=== PATIENT | female | born 1955 | race Caucasian/White ===

== ENCOUNTER → 2019-11-28 | Outpatient (CLI) | payer OTHER | LOC: NUC 07:04 | DX: I48.91 Unspecified atrial fibrillation (principal); E78.5 Hyperlipidemia, unspecified; Z79.899 Other long term (current) drug therapy ==

== ENCOUNTER → 2019-11-30 | Outpatient (CLI) | payer OTHER ==
[~2019-11-30] MED LIST: DILTIAZEM ER120 M1 PO; LEVO-T25 MCG PO; LIPITOR 40 MG T40 M1 PO; OSTEO BI-FLEX1 EAC1 PO; PACERONE200 MG PO; PRADAXA150 MG PO; UNICOMPLEX M TA1 TA1 PO; ZETIA10 MG PO
== END | disposition home or self-care (01) ==
LOC: SJCVC 11:05
DX: I48.91 Unspecified atrial fibrillation (principal); E78.5 Hyperlipidemia, unspecified; Z79.899 Other long term (current) drug therapy; Z90.710 Acquired absence of both cervix and uterus

== ENCOUNTER → 2019-11-30 | Outpatient (CLI) | payer OTHER ==
--- NOTE | 2019-11-30 11:32 | 2DMMODE ---
[facility] [address] [place] [address] 2 D/M-MODE ECHOCARDIOGRAM Name: PALOMOADIN JACLYN Room #: REG [facility]#: [id number] Admission: 11/30/19 Attend Phys: Blaise Anguiano Discharge: Date of : 51 Report #: [id number] THIS REPORT FOR: //name// APPROVED REPORT Study performed: 11/30/2019 10:14:54 EXAM: Comprehensive 2D, Doppler, and color-flow Echocardiogram Patient Location: Out-Patient Status: routine BSA: 2.04 HR: 92 bpm BP: 110/82 mmHg Rhythm: Atrial Fibrillation Other Information Study Quality: Good Indications Atrial Fibrillation Hx: HLP 2D Dimensions RVDd: 39.91 mm IVSd: 11.95 (7-11mm) LVOT Diam: 22.23 (18-24mm) LVDd: 39.11 mm PWd: 10.52 (7-11mm) Ascending Ao: 30.70 (22-36mm) LVDs: 29.40 (25-40mm) Aortic Root: 31.99 mm Volumes Left Atrial Volume (Systole) Single Plane 4CH: 73.05 mL Single Plane 2CH: 56.45 mL LA ESV Index: 35.00 mL/m2 Aortic Valve AoV Peak Bradley.: 1.07 m/s AO Peak Gr.: 4.59 mmHg LVOT Max P.63 mmHg LVOT Max V: 0.81 m/s KAVON Vmax: 2.93 cm2 Mitral Valve MV Decel. Time: 159.38 ms MV E Max Bradley.: 0.89 m/s [facility] [address] [place] [address] 2 D/M-MODE ECHOCARDIOGRAM Name: ADIN CULVER Room #: REG [facility]#: [id number] Admission: 11/30/19 Attend Phys: Blaise Anguiano Discharge: Date of : 51 Report #: [id number] Pulmonary Valve PV Peak Bradley.: 0.70 m/s PV Peak Gr.: 1.99 mmHg Tricuspid Valve TR Peak Bradley.: 2.29 m/s RAP Estimate: 5.00 mmHg TR Peak Gr.: 21.11 mmHg PA Pressure: 26.00 mmHg Left Ventricle The left ventricle is normal size. There is normal LV segmental wall motion. Mild basal septal hypertrophy is present. Left ventricular systolic function is normal. LVEF is 55-60%. This study is not technically sufficient to allow evaluation of the LV diastolic function due to atrial fibrillation. Right Ventricle The right ventricle is normal size. The right ventricular systolic function is normal. Atria Mild biatrial enlargement. Aortic Valve The aortic valve is normal in structure. Trace to mild aortic regurgitation. There is no aortic valvular stenosis. Mitral Valve The mitral valve is normal in structure. Mild to moderate mitral regurgitation. Tricuspid Valve The tricuspid valve is normal in structure. Mild tricuspid regurgitation. Estimated PAP is 25-30mmHg. Pulmonic Valve The pulmonary valve is normal in structure. Trace pulmonic regurgitation. Great Vessels The aortic root is normal in size. The ascending aorta is normal in size. IVC is normal in size and collapses >50% with inspiration. Pericardium There is no pericardial effusion. [facility] [place] [address] 2 D/M-MODE ECHOCARDIOGRAM Name: ADIN CULVER JACLYN Room #: REG [facility]#: [id number] Admission: 11/30/19 Attend Phys: Blaise Anguiano Discharge: Date of : 51 Report #: [id number] <Conclusion> The left ventricle is normal size. LVEF is 55-60%. The right ventricle is normal size. Mild biatrial enlargement. The aortic valve is normal in structure. Trace to mild aortic regurgitation. The mitral valve is normal in structure. Mild to moderate mitral regurgitation. The tricuspid valve is normal in structure. Mild tricuspid regurgitation. Estimated PAP is 25-30mmHg. The pulmonary valve is normal in structure. Trace pulmonic regurgitation. There is no pericardial effusion. <ELECTRONICALLY SIGNED> By: Blaise Schultz MD 11/30/19 1131 1131 1131 Blaise Schultz MD /INF
== END ==
LOC: CV
DX: I08.3 Combined rheumatic disorders of mitral, aortic and tricuspid valves (principal); I48.91 Unspecified atrial fibrillation

== ENCOUNTER 2019-12-26 12:15 | Inpatient (IN) | payer OTHER ==
[~2019-12-26] VITALS: Ht 175.3 cm; Wt 87.1 kg
[2019-12-26 14:00] VITALS: BP 126/86
[2019-12-26 14:30] VITALS: BP 102/72
[2019-12-26] MEDS ORDERED: ZETIA10 MG PO (15:06)
[2019-12-26] MEDS ORDERED: DILTIAZEM ER120 M1 PO (15:06)
[2019-12-26] MEDS ORDERED: LIPITOR 40 MG T40 M1 PO (15:06)
[2019-12-26] MEDS ORDERED: UNICOMPLEX M TA1 TA1 PO (15:07)
[2019-12-26] MEDS ORDERED: PRADAXA150 MG PO (15:07)
[2019-12-26] MEDS ORDERED: LEVO-T25 MCG PO (15:07)
[2019-12-26] MEDS ORDERED: OSTEO BI-FLEX1 EAC1 PO (15:08)
[2019-12-26 16:02] LABS: CREATININE 0.7 mg/dL (0.6-1.0); MAGNESIUM 1.6 mg/dL (1.8-2.4); POTASSIUM 3.7 mmol/L (3.5-5.1)
--- NOTE | 2019-12-26 17:55 | NUR ---
DIRECT ADMIT FOR DR RILEY FOR CARDIOVERSION IN THE MORNING. ALERT X4, ANNA SOB, ANNA CHEST PAIN, ALERT X4, VS WNL. NPO TONIGHT FOR PROCEDURE IN THE MORNING. HOME MEDS RECONCILED, ADMISSION ASSESMENT AND HISTORY COMPLETED. ORRIENTED TO ROOM. CALL LIGHT IN REACH
[2019-12-26 19:17] VITALS: BP 119/70
[2019-12-26 23:38] VITALS: BP 117/68
[2019-12-27 04:47] VITALS: BP 119/71
--- NOTE | 2019-12-27 05:19 | NUR ---
ASSESSMENT DOCUMENTED.PT BEEN RESTING IN NO ACUTE.VSS.A/OX4.CONT ON AMIODARONE DRIP PER PROTOCL,TOLERATING,REMAINS AFIB ON MONITOR.NPO AFTER MIDNOC.RA W/O RESP DISTRESS.UP AD MIGUELITO TO BR.PT DENIES PAIN OR ANY DISTRESS AT THIS TIME.POC IS TO GO FOR CARDIOVERSION THEN HOME LATER
[2019-12-27 07:09] VITALS: BP 117/76
[2019-12-27] MEDS ORDERED: PACERONE200 MG PO (12:44)
[2019-12-27 16:00] VITALS: BP 117/76
--- NOTE | 2019-12-27 16:33 | NUR ---
ASSUMMED PT CARE AT APPROXIMATELY 0700. PT A&O X4. ASSESSMENT CHARTED. FALL PRECAUTIONS IN PLACE. PT DENIES HAVING CHEST PAIN. PT DENIES HAVING SOB. PT DENIES HAVING ACUTE PAIN. PT HAD CARDIOVERSION TODAY. PT CARDIOVERTED OUT OF AFIB. PT DISCHARGING HOME C SELF CARE. PT RECIEVED DISCHARGE EDUCATION. PT AND PT'S FAMILY STATED UNDERSTANDING AND DENIED HAVING FURTHER QUESTIONS. IV DC. TELE DC. PT RECEIVING MEDICAL TRANSPORT OFF UNIT. PT COMFORTABLE. PT DENIES HAVING FURTHER CONCERNS. VITAL SIGNS STABLE.
--- NOTE | 2019-12-28 12:13 | P ---
[facility] [place] [address] PROCEDURE REPORT Name: ADIN CULVER Room #: 200-I [facility] IN M.R.#: [id number] Admission: 12/26/19 Attend Phys: Blaise Schultz Discharge: 12/27/19 Date of : 51 Report #: [id number] THIS REPORT FOR: cc: Ngoc Mcelroy MD,Ngoc Schultz,Blaise Butts MD ~ CC: Blaise Mcelroy DATE OF SERVICE: 12/27/2019 INDICATION: This is a 64-year-old female patient with symptomatic paroxysmal atrial fibrillation. BRIEF DESCRIPTION OF PROCEDURE: After informed consent was obtained, the patient was brought to the cardiac catheterization laboratory prep and hold. She underwent sedation with 3 mg of Versed and 25 of Demerol IV. She was continuously monitored oximetrically and electrocardiographically. AP paddles have been placed in position and she underwent one synchronized biphasic 200 joules charge in sync mode. She converted to sinus bradycardia. Post-procedure, she was allowed to sleep and monitored until awake. COMPLICATIONS: None. RECOMMENDATIONS: Routine post-cardioversion protocol. <ELECTRONICALLY SIGNED> By: Blaise Schultz MD 12/28/19 1213 1323 [id number] Blaise Schultz MD /nt
--- NOTE | 2019-12-28 12:13 | D ---
[facility] [place] [address] DISCHARGE SUMMARY Name: ADIN CULVER Room #: 200-I [facility] IN M.R.#: [id number] Admission: 12/26/19 Attend Phys: Blaise Schultz Discharge: 12/27/19 Date of : 51 Report #: [id number] THIS REPORT FOR: cc: Ngoc Mcelroy MD,Ngoc Schultz,Blaise Butts MD ~ THIS REPORT FOR: //name// CC: Blaise Mcelroy DATE OF SERVICE: 12/27/2019 ADMITTING DIAGNOSIS: Symptomatic paroxysmal atrial fibrillation. DISCHARGE DIAGNOSIS: Symptomatic paroxysmal atrial fibrillation. PROCEDURES PERFORMED: 1. Electrical cardioversion. 2. Supervision of conscious sedation. DISCHARGE MEDICATIONS: 1. Home meds. 2. 200 mg of amiodarone p.o. b.i.d. x 1 week, then q.a.m. FOLLOWUP: Dr. Schultz in 3-4 weeks. BRIEF CLINICAL HISTORY: See history and physical in chart. HOSPITAL COURSE: The patient was admitted to the hospital, was initiated on IV amiodarone protocol. This failed to convert her overnight. She subsequently underwent electrical cardioversion with a synchronized 200 joule biphasic shock. This converted her to sinus bradycardia. There were no complications during the procedure. She subsequently was observed, allowed to ambulate and discharged to home in stable and improved condition with previously stated discharge instructions and medications. <ELECTRONICALLY SIGNED> By: Blaise Schultz MD 12/28/19 1213 1324 1335 Blaise Schultz MD /nt
== END 2019-12-27 18:17 | disposition home or self-care (01) | DRG 310 ==
LOC: 2N 12:15 → ENTRNSPT 12-27 16:31 → 2N 12-27 18:17
PROVIDERS: ADMIT Internal Medicine
PROC: 5A2204Z Restoration of Cardiac Rhythm, Single (ICD-10-PCS; principal; 2019-12-27)
DX: I48.0 Paroxysmal atrial fibrillation (principal); E78.5 Hyperlipidemia, unspecified; Z79.899 Other long term (current) drug therapy; Z79.82 Long term (current) use of aspirin; Z90.710 Acquired absence of both cervix and uterus
CPT/HCPCS: 10081

== ENCOUNTER → 2020-01-25 | Outpatient (CLI) | payer OTHER | LOC: SJCVC 10:36 | DX: I48.91 Unspecified atrial fibrillation (principal); E78.5 Hyperlipidemia, unspecified; Z79.899 Other long term (current) drug therapy ==

== ENCOUNTER → 2020-04-10 | Outpatient (CLI) | payer OTHER | LOC: SJCVC 09:38 | DX: R94.31 Abnormal electrocardiogram [ECG] [EKG] (principal); I21.29 ST elevation (STEMI) myocardial infarction involving other sites; I48.0 Paroxysmal atrial fibrillation ==

== ENCOUNTER → 2020-05-07 | Outpatient (CLI) | payer OTHER | LOC: LAB 08:00 | PROVIDERS: ATTEND Internal Medicine Cardiovascular Disease | DX: Z01.812 Encounter for preprocedural laboratory examination (principal); Z11.59 Encounter for screening for other viral diseases ==

== ENCOUNTER → 2020-05-07 | Outpatient (CLI) | payer OTHER ==
[2020-05-07 09:44] LABS: ABSOLUTE NEUTROPHILS 3.7 thou/uL (1.4-8.2); BASOPHILS 0.7 % (0.0-2.0); EOSINOPHILS 1.7 % (0.0-3.0); HEMATOCRIT 39.4 % (37.0-47.0); HEMOGLOBIN 13.1 gm/dL (12.0-15.0); LYMPHOCYTES 18.8 % (24.0-44.0); MCH 32.6 pg (26.0-34.0); MCHC 33.3 g/dL (28.0-37.0); MCV 97.8 fL (80.0-100.0); MONOCYTES 7.9 % (1.0-8.0); PLATELET COUNT 186 thou/uL (150-400); POLYS 70.9 % (36.0-66.0); RBC 4.03 mil/uL (4.20-5.00); RDW 14.9 % (10.5-14.5); WBC 5.2 thou/uL (4.0-11.0)
[2020-05-07 09:58] LABS: ALBUMIN 3.9 g/dL (3.4-5.0); CALCIUM 9.1 mg/dL (8.5-10.1); CREATININE 0.7 mg/dL (0.6-1.0); POTASSIUM 4.4 mmol/L (3.5-5.1); TOTAL BILIRUBIN 0.4 mg/dL (0.2-1.0); TOTAL PROTEIN 7.2 g/dL (6.4-8.2)
== END ==
LOC: CAT 09:18
PROVIDERS: ATTEND Internal Medicine Cardiovascular Disease
DX: I48.91 Unspecified atrial fibrillation (principal)

== ENCOUNTER → 2020-05-10 | Outpatient (CLI) | payer OTHER | END | disposition home or self-care (01) | LOC: CATH 06:38 | PROVIDERS: ATTEND Internal Medicine Cardiovascular Disease | DX: I48.91 Unspecified atrial fibrillation (principal); Z53.8 Procedure and treatment not carried out for other reasons; Z98.890 Other specified postprocedural states; Z79.899 Other long term (current) drug therapy; Z79.01 Long term (current) use of anticoagulants ==

== ENCOUNTER 2020-06-04 06:30 | Outpatient (CLI) | payer OTHER ==
[2020-06-04] VITALS (7 sets, daily range): BP systolic 106–151; BP diastolic 64–86
[~2020-06-04] VITALS: Ht 175.3 cm; Wt 81.6 kg
[2020-06-04 07:20] LABS: ABSOLUTE NEUTROPHILS 3.6 thou/uL (1.4-8.2); BASOPHILS 0.5 % (0.0-2.0); EOSINOPHILS 3.2 % (0.0-3.0); HEMATOCRIT 39.5 % (37.0-47.0); HEMOGLOBIN 13.4 gm/dL (12.0-15.0); LYMPHOCYTES 18.9 % (24.0-44.0); MCH 32.9 pg (26.0-34.0); MCHC 33.9 g/dL (28.0-37.0); MCV 97.2 fL (80.0-100.0); MONOCYTES 7.9 % (1.0-8.0); PLATELET COUNT 172 thou/uL (150-400); POLYS 69.5 % (36.0-66.0); RBC 4.06 mil/uL (4.20-5.00); RDW 14.5 % (10.5-14.5); WBC 5.2 thou/uL (4.0-11.0)
[2020-06-04 07:30] LABS: CALCIUM 9.1 mg/dL (8.5-10.1); CREATININE 0.9 mg/dL (0.6-1.0); POTASSIUM 3.9 mmol/L (3.5-5.1)
[2020-06-04 07:32] LABS: APTT 34.3 Seconds (24.5-32.8); PROTIME 10.7 Seconds (9.3-11.4)
[2020-06-04 07:35] LABS: TOTAL BILIRUBIN 0.3 mg/dL (0.2-1.0); TOTAL PROTEIN 7.8 g/dL (6.4-8.2)
--- NOTE | 2020-06-04 14:54 | NUR ---
[facility] HERE TO PULL ART LINE.
--- NOTE | 2020-06-04 15:43 | NUR ---
ZENG CATHETER REMOVED FOR APPROX 1200CC CLEAR YELLOW URINE. ASSISTED PT TO SIT UP AT BEDSIDE AND PERFORM OWN PERICARE. PT TOLERATED WELL. WAITING ON ROOM.
--- NOTE | 2020-06-04 18:56 | NUR ---
PT. ARRIVED ON FLOOR AROUND 1630; AOX4; ON BED REST SINCE 1130; PER DR. PRADO NOTES KEEP THE PT. ON BED REST UNTIL 1730; PT. NOTIFIED; ST. UNDERSTANDING; R. SIDE GROIN AREA INTACT; NO HEMATOMA; DRIED DRAINAGE; MARKED; EDUCATED ABOUT FALL PREVENTIONS; OFF OF BED REST AT 1730; ABLE TO STAND UP & WALK TO THE RESTHROOM; ABLE TO VOID; EDUCATED ABOUT HOLDING PRESSURE WHEN COUGHING; ST. UNDERSTANDING; SR ON THE MONITOR; MONITORING; ASSESSMENT CHARGED; FOLLOWING POC; WILL PASS ON REPORT;
[2020-06-04] MEDS ORDERED: AMIODARONE HCL400 MG PO (19:01)
[2020-06-05 00:10] VITALS: BP 122/79
[2020-06-05 02:49] VITALS: BP 119/68
--- NOTE | 2020-06-05 05:07 | NUR ---
HAD TROUBLE FALLING ASLEEP STATING SHE CAN HEAR THE CONFUSED ONE NEXT DOOR. STATES EVERY TIME SHE TURNS AND MOVES HER RIGHT GROIN IS SORE. IT FEELS BRUISED. REPOSTIONED AND ELEVATED KNEES WHICH GOT RID OF BACK PAIN. WORKING ON GOALS AND PLAN OF CARE FOR NOC. PROGRESSING SLOWLY TOWARDS DISCHARGE GOALS. CONTINUE TO ASSES.
[2020-06-05 07:50] VITALS: BP 116/76
[2020-06-05] MEDS ORDERED: PACERONE 200 M200 M1 PO (08:19)
[2020-06-05 08:40] VITALS: BP 116/76
--- NOTE | 2020-06-05 09:49 | NUR ---
ASSUMED CARE PT SHIFT CHANGE. ASSESSMENT CHARTED. MEDS GIVEN PER JAN.PT ALERT AND ORIENTED. DC ORDERS IN PER CARDIOLOGY. RT GROIN SITE DRY, INTACT. DRAINAGE NOTED. NO HEMATOMA. PT UP ADLIB. PT LEFT UNIT AT APPROX 0940 WITH ALL BELONGINGS.
--- NOTE | 2020-06-06 15:33 | P ---
[facility] [place] [address] PROCEDURE REPORT Name: ADIN CULVER Room #: DEP [facility]#: [id number] Admission: 06/04/20 Attend Phys: Cristian Allen MD Discharge: 06/05/20 Date of : 51 Report #: [id number] THIS REPORT FOR: cc: Ngoc Mcelroy MD,Ngoc Allen,Cristian Bustamante MD ~ CC: Eunice Mcelroy ATRIAL FIBRILLATION AND ATRIAL FLUTTER ABLATION PREOPERATIVE DIAGNOSIS: Atrial fibrillation. POSTOPERATIVE DIAGNOSES: 1. Atrial fibrillation. 2. Typical atrial flutter. HISTORY: The patient is a 64-year-old with history of paroxysmal AFib, who has failed to maintain sinus rhythm with antiarrhythmic drug therapy. She is here for AFib ablation. PROCEDURES PERFORMED: 1. Atrial fibrillation ablation, CPT code 59219. 2. 3D mapping, CPT code 49790. 3. Intracardiac echo, CPT code 14854. 4. Second pathway ablation for atrial flutter, CPT code 67441. ANESTHESIA: The patient underwent general anesthesia with no anesthesia related complications. DESCRIPTION OF PROCEDURE: The patient underwent informed consent. We discussed the details of the procedure including the risks, which include but not limited to bleeding, vascular damage, stroke, NE as well as cardiac perforation. She understood these risks and is willing to proceed. The patient was brought to EP laboratory in a fasting and unsedated state and prepped and draped in a sterile fashion. I injected lidocaine to the right groin, obtained access to the right femoral vein x 3, placing an 8, 9 and 7-Georgian short sheath using the modified Seldinger technique. Next, under fluoroscopy, a decapolar catheter was placed easily into the coronary sinus and an ICE catheter was placed into the right atrium. Using CartoSound, a 3D geometry of the left atrium was created with evidence of left atrial appendage, two left and two right pulmonary veins. Of note, the two left veins were close to each other, but did not really constitute a common ostium. Next, the patient was systemically heparinized and a transseptal was performed using an SL1 sheath and a [place] needle. Could not cross with the SL1 sheath and then exchanged for [facility] [address] [place] [address] PROCEDURE REPORT Name: ADIN CULVER Room #: DEP [facility]#: [id number] Admission: 06/04/20 Attend Phys: Cristian Allen MD Discharge: 06/05/20 Date of : 51 Report #: [id number] the cryo sheath and this crossed into the left atrium without any issues. Lasso catheter was placed in the left atrium. At baseline, the patient was in sinus rhythm. Using the Lasso catheter, 3D geometry and voltage map was created of the left atrium. Next, the cryoballoon was placed into the left atrium and we started by isolating the left superior pulmonary vein. Occlusion was determined using pressure waveform monitoring. The left superior pulmonary vein underwent a 4-minute, followed by a 3-minute, followed by an 80-second, followed by a 3-minute freeze. There were still some activated potentials along the inferior aspect of the vein. It appeared that the majority of the vein was isolated. I therefore decided to move to the left inferior pulmonary vein. I performed a 4-minute, followed by a 3-minute freeze. The vein isolated during the first freeze within 40 seconds. I then went back to the left superior pulmonary vein and this was now clearly isolated. Likely, there was a connection between the reno of these two veins that was keeping the left superior connected. Next, I turned my attention to the right-sided veins. Phrenic nerve pacing was performed with the decapolar catheter placed at the subclavian vessel. The right superior pulmonary vein underwent a 100-second freeze, followed by a 180-second freeze. The vein isolated within 15 seconds of the first freeze. The first freeze, I came off because attempts were getting to -55. The second freeze, attempts were -38. I then turned my attention to the right inferior pulmonary vein. I performed two 3-minute freezes. It appeared that the vein was isolated, so at this point, I went back and performed a voltage map of the left atrium and all veins were isolated and likely the right inferior was also isolated, but there were still some potentials at the most inferior aspect of the vein. Therefore, I went in and performed a third freeze of 4 minutes' duration at the most inferior aspect of the vein and I went back and remapped this and it appeared that we had widened our area of isolation hopefully to prevent reconnection in the future. A basic EP study was then performed. Atrial burst pacing was performed and AV block was noted at 550 milliseconds. AV adele ERP was noted at 490 milliseconds at [address] cycle length. With aggressive atrial burst pacing, the patient went into atrial flutter with a tachycardia cycle length of 310 milliseconds, proximal to distal activation along the CS and negative sawtooth flutter waves in the inferior leads. This was suggestive of a right-sided flutter; therefore, I took my cryo sheath and Lasso catheter in the right atrium and created an activation map of this atrial flutter and this clearly was cavotricuspid isthmus dependent in nature as we had the entire tachycardia cycle length in the right atrium and it was propagating in a counterclockwise activation pattern. As such, I prepped the patient for ablation. I placed an 8 mm ablation catheter into the right atrium and preablation the transisthmus conduction time was 80 milliseconds. I was also able to measure an AH interval and an HV interval as the patient had converted to sinus prior to the ablation, the AH interval was 145 milliseconds, HV interval was 49 milliseconds. Next, ablation was performed at 6 o'clock along the cavotricuspid isthmus. Ablation was performed at 70 ramirez and 60 degrees. [facility] [address] [place] [address] PROCEDURE REPORT Name: PALOMOADIN Room #: DEP [facility]#: [id number] Admission: 06/04/20 Attend Phys: Cristian Allen MD Discharge: 06/05/20 Date of : 51 Report #: [id number] A continuous drag line was performed until I fell into the IVC. I then tested conduction times again and now the transisthmus conduction time was 180 milliseconds consistent with bidirectional block. I therefore took my ablation catheter back on the line, performed additional ablation to ensure no reconnection and the procedure was concluded. Using intracardiac ultrasound, I verified there was no pericardial effusion. The patient received systemic protamine and once the ACT was within acceptable range, catheters and sheaths were pulled and hemostasis was obtained. The patient awoke neurologically and hemodynamically intact. No complications and no significant bleeding. CONCLUSIONS: 1. Successful AFib ablation with isolation of the pulmonary veins. 2. Successful atrial flutter ablation with evidence of bidirectional block. 3. AV block noted at 550 milliseconds likely due to amiodarone therapy. 4. Normal AH interval. 5. Normal HV interval. <ELECTRONICALLY SIGNED> By: Cristian Allen MD 06/06/20 1533 1314 42 Cristian Allen MD /nt
== END 2020-06-05 09:40 | disposition home or self-care (01) ==
LOC: CATH 06:30 → 2N 16:14 → CATH 06-05 09:40
PROVIDERS: ATTEND Internal Medicine Cardiovascular Disease
DX: I48.91 Unspecified atrial fibrillation (principal); I48.3 Typical atrial flutter; I10 Essential (primary) hypertension; E78.00 Pure hypercholesterolemia, unspecified; E03.9 Hypothyroidism, unspecified; E66.09 Other obesity due to excess calories; Z98.890 Other specified postprocedural states; Z79.899 Other long term (current) drug therapy; Z79.01 Long term (current) use of anticoagulants; Z11.59 Encounter for screening for other viral diseases
CPT/HCPCS: 10081; 62110; 62900; 65020; 65040; 70005

== ENCOUNTER → 2020-06-25 | Outpatient (CLI) | payer OTHER ==
[~2020-06-25] MED LIST changes: +AMIODARONE HCL400 MG PO; +PACERONE 200 M200 M1 PO
== END ==
LOC: SJCVC 12:58
PROVIDERS: ATTEND Internal Medicine
DX: I44.0 Atrioventricular block, first degree (principal); I48.0 Paroxysmal atrial fibrillation; E78.5 Hyperlipidemia, unspecified; E03.8 Other specified hypothyroidism

== ENCOUNTER → 2020-09-11 | Outpatient (CLI) | payer OTHER | LOC: SJCVC 09:54 | PROVIDERS: ATTEND Internal Medicine Cardiovascular Disease | DX: I44.0 Atrioventricular block, first degree (principal); I48.3 Typical atrial flutter; I48.0 Paroxysmal atrial fibrillation ==

== ENCOUNTER → 2020-09-26 | Outpatient (CLI) | payer OTHER ==
[2020-09-26 11:50] VITALS: BP 117/73
--- NOTE | 2020-09-27 14:38 | LINQ ---
[facility] [place] [address] LINQ PROCEDURE REPORT Name: ADIN CULVER Room #: REG [facility]#: [id number] Admission: 09/26/20 Attend Phys: Blaise Schultz Discharge: Date of : 51 Report #: [id number] THIS REPORT FOR: cc: Ngoc Mcelroy MD, Mary Ann MD Lammoglia, Francisco J. MD ~ THIS REPORT FOR: //name// APPROVED REPORT Study performed: 09/26/2020 11:20:01 Patient Status: Out-Patient Room #: Event Personnel: Gregorio Schultz MD Exam: Reveal LINQ Insertion Indications: Arrhythmia The patient is a 64 year-old with a history of Symptomatic paroxysmal atrial fibrillation status post atrial fibrillation. Implanted Devices: Medtronic Reveal LINQ Model # LNQ11; Serial # [id number]; Use By 2021-08-13 Procedure The patient underwent informed consent. We discussed the details of the procedure including the risks, which include, but not limited to bleeding, infection, vascular damage, cardiac perforation, and pneumothorax. The patient was brought to the cardiac catheterization laboratory prepped and hold. Left chest was prepped and draped in usual sterile manner. Utilizing 1% lidocaine a wheal was raised and instilled. Utilizing a spinal needle the lidocaine was carried forth through the proposed tract of the device placement. Utilizing both sharp and blunt dissection a pocket was developed after 11 blade was utilized to make 1/4 inch incision in the skin. Utilizing the enclosed appointment tool the device was deployed without complications per hemostasis was achieved. Utilizing 2 simple interrupted sutures the subcutaneous tissue was then opposed and secured. The skin was closed with 3-0 running subcuticular stitch. Dermabond Steri-Strips 4 x 4 OpSite were utilized. Patient tolerated procedure well Conclusion [address] [address] [employer] PROCEDURE REPORT Name: ADIN CULVER Room #: REG [facility]#: [id number] Admission: 09/26/20 Attend Phys: Blaise Anguiano Discharge: Date of : 51 Report #: [id number] 1. Successful insertion of a Medtronic implantable loop recorder Recommendations 1. Routine post loop recorder insertion protocol <ELECTRONICALLY SIGNED> By: Blaise Schultz MD 09/27/20 1437 1437 143 Blaise Schultz MD /INF
== END | disposition home or self-care (01) ==
LOC: CATH 08:48
PROVIDERS: ATTEND Internal Medicine
DX: I48.0 Paroxysmal atrial fibrillation (principal); Z98.890 Other specified postprocedural states; Z79.899 Other long term (current) drug therapy; Z79.01 Long term (current) use of anticoagulants

== ENCOUNTER → 2020-11-28 | Outpatient (CLI) | payer OTHER | LOC: SJCVC 15:33 | PROVIDERS: ATTEND Internal Medicine Cardiovascular Disease | DX: I44.0 Atrioventricular block, first degree (principal); I48.0 Paroxysmal atrial fibrillation ==

== ENCOUNTER → 2021-12-26 | Outpatient (CLI) | payer OTHER | LOC: SJCVC 10:13 | PROVIDERS: ATTEND Internal Medicine | DX: R94.31 Abnormal electrocardiogram [ECG] [EKG] (principal); I48.0 Paroxysmal atrial fibrillation; E78.5 Hyperlipidemia, unspecified; E03.8 Other specified hypothyroidism; Z72.89 Other problems related to lifestyle; Z79.899 Other long term (current) drug therapy ==